=== PATIENT | female | born 1975 | race Caucasian/White ===

== ENCOUNTER 2016-04-08 10:52 | Emergency (ER) | payer OTHER ==
[2016-04-08 12:16] VITALS: BP 118/71
--- NOTE | 2016-04-08 12:50 | UC ---
Upper Extremity HPI - HPI Summary HPI Summary: fell off a stool yesterday and landed on left elbow - History of Current Complaint Chief Complaint: UCUpperExtremity Stated Complaint: ARM INJURY Time Seen by Provider: 04/08/16 12:14 Hx Obtained From: Patient Hx Last Menstrual Period: 03/26/16 ?: No Onset/Duration: Sudden Onset, Lasting Days - 1, Still Present Severity Initially: Mild Severity Currently: Mild Pain Intensity: 4 Pain Scale Used: 0-10 Numeric - 4 Location Of Pain: Is Discrete @ - left elbow Character: Aching Aggravating Factor(s): Movement - some movements Alleviating Factor(s): Nothing Associated Signs And Symptoms: Positive: Bruising Related History: Dominant Hand Right - Allergies/Home Medications Allergies/Adverse Reactions: Allergies Allergy/AdvReac Type Severity Reaction Status Date / Time Sulfamethoxazole Allergy Severe Nausea And Verified 04/08/16 12:16 w/Trimethoprim Vomiting [From Bactrim] PMH/Surg Hx/FS Hx/Imm Hx Previously Healthy: No Endocrine History Of: Reports: Thyroid Disease - Surgical History Surgical History: Yes Surgery Procedure, Year, and Place: appe; D & C 2001 - Family History Known Family History: Positive: Respiratory Disease, Other - hypothyrodism - Social History Occupation: Employed Full-time - day care provider Lives: With Family Alcohol Use: Rare Substance Use Type: None Smoking Status (MU): Never Smoked Tobacco Review of Systems Constitutional: Negative Skin: Bruising - left elbow Eyes: Negative ENT: Negative Respiratory: Negative Cardiovascular: Negative Gastrointestinal: Negative Genitourinary: Negative Motor: Negative Neurovascular: Negative Musculoskeletal: Arthralgia - left elbow Neurological: Negative Psychological: Negative All Other Systems Reviewed And Are Negative: Yes Physical Exam Triage Information Reviewed: Yes Appearance: Well-Appearing, Well-Nourished, Pain Distress - mild Vital Signs: Initial Vital Signs Temp 98.5 F 04/08/16 12:11 Pulse 69 04/08/16 12:11 Resp 12 04/08/16 12:11 BP 118/71 04/08/16 12:11 Vital Signs Reviewed: Yes Eye Exam: Normal Eyes: Positive: Conjunctiva Clear ENT Exam: Normal ENT: Positive: Normal ENT inspection, Hearing grossly normal, Pharynx normal, TMs normal. Negative: Nasal congestion, Nasal drainage, Tonsillar swelling, Tonsillar exudate, Trismus, Muffled/hoarse voice Dental Exam: Normal Neck exam: Normal Neck: Positive: Supple, Nontender, No Lymphadenopathy Respiratory Exam: Normal Respiratory: Positive: Chest non-tender, Lungs clear, Normal breath sounds, No respiratory distress, No accessory muscle use Cardiovascular Exam: Normal Cardiovascular: Positive: RRR, No Murmur, Pulses Normal, Brisk Capillary Refill Musculoskeletal Exam: Other Musculoskeletal: Positive: Strength Intact, ROM Intact, Edema @ - left elbow Neurological Exam: Normal Neurological: Positive: Alert, Muscle Tone Normal Psychological Exam: Normal Psychological: Positive: Normal Response To Family, Age Appropriate Behavior Skin Exam: Normal Diagnostics - Laboratory Diagnostic Studies Completed/Ordered: negative for fracture Upper Extremity Course/Dx - Course Course Of Treatment: rest, ice, compression, ibuprofen, re-check prn with ortho - Differential Dx/Diagnosis Differential Diagnosis/HQI/PQRI: Bursitis, Contusion, Fracture (Closed), Strain , Sprain Provider Diagnoses: contusion left elbow Discharge - Discharge Plan Condition: Stable Disposition: HOME Patient Education Materials: Ibuprofen (By mouth), Contusion in Adults (ED), RICE Therapy (ED) Referrals: Maru Stein MD [Medical Doctor] - If Needed Perfecto Patel MD [Primary Care Provider] -
--- NOTE | 2016-04-08 12:51 | RAD ---
HISTORY: Left elbow trauma, pain COMPARISONS: None VIEWS: 4, Frontal, lateral, and oblique views of the left elbow FINDINGS: BONE DENSITY: Normal. BONES: There is no displaced fracture. JOINTS: There is no arthropathy. There is no posterior supracondylar fat pad to suggest a joint effusion. ALIGNMENT: There is no dislocation. SOFT TISSUES: Unremarkable. OTHER FINDINGS: None. IMPRESSION: NO ACUTE OSSEOUS INJURY. IF SYMPTOMS PERSIST, RECOMMEND REPEAT IMAGING.
== END 2016-04-08 13:02 | disposition home or self-care (01) ==
LOC: UCEAST 10:52
DX: S50.02XA Contusion of left elbow, initial encounter (principal); W07.XXXA Fall from chair, initial encounter; Y93.9 Activity, unspecified; Y92.9 Unspecified place or not applicable; Y99.9 Unspecified external cause status
CPT/HCPCS: 99211; 99213; G0463

== ENCOUNTER 2016-05-31 16:48 | Emergency (ER) | payer OTHER ==
[2016-05-31 18:59] VITALS: BP 136/79
--- NOTE | 2016-05-31 19:07 | UC ---
Complaint Female HPI - HPI Summary HPI Summary: Dysuria, hematuria, frequency starting 2 days ago. Feels like UTIs she's had in the past. - History Of Current Complaint Chief Complaint: UCGU Stated Complaint: BURNING URINATION Time Seen by Provider: 05/31/16 18:57 Hx Last Menstrual Period: 05/13/16 ?: No Onset/Duration: Gradual Onset, Lasting Days Timing: Constant Severity Initially: Mild Severity Currently: Moderate Character: Burning Aggravating Factor(s): Urination - Allergies/Home Medications Allergies/Adverse Reactions: Allergies Allergy/AdvReac Type Severity Reaction Status Date / Time Sulfamethoxazole Allergy Severe Nausea And Verified 04/08/16 12:16 w/Trimethoprim Vomiting [From Bactrim] PMH/Surg Hx/FS Hx/Imm Hx Endocrine History Of: Reports: Thyroid Disease Denies: Diabetes Cardiovascular History Of: Denies: Cardiac Disorders, Hypertension Respiratory History Of: Denies: COPD, Asthma GI/ History Of: Denies: Ulcer - Surgical History Surgical History: Yes Surgery Procedure, Year, and Place: appe; D & C 2001 - Family History Known Family History: Positive: Respiratory Disease, Other - hypothyrodism - Social History Lives: With Family Alcohol Use: Occasionally Substance Use Type: None Smoking Status (MU): Never Smoked Tobacco Review of Systems Constitutional: Negative Skin: Negative Eyes: Negative ENT: Negative Respiratory: Negative Cardiovascular: Negative Gastrointestinal: Negative Genitourinary: Dysuria, Hematuria, Frequency, Urgency Motor: Negative Neurovascular: Negative Musculoskeletal: Negative Neurological: Negative Psychological: Negative All Other Systems Reviewed And Are Negative: Yes Physical Exam Triage Information Reviewed: Yes Appearance: Well-Appearing, No Pain Distress, Well-Nourished Vital Signs: Initial Vital Signs Temp 99.0 F 05/31/16 18:55 Pulse 67 05/31/16 18:55 Resp 18 05/31/16 18:55 BP 136/79 05/31/16 18:55 Pulse Ox 100 05/31/16 18:55 Vital Signs Reviewed: Yes Eye Exam: Normal Eyes: Positive: Conjunctiva Clear ENT Exam: Normal ENT: Positive: Normal ENT inspection, Hearing grossly normal, Pharynx normal, TMs normal Dental Exam: Normal Respiratory Exam: Normal Respiratory: Positive: Chest non-tender, Lungs clear, Normal breath sounds, No respiratory distress, No accessory muscle use Cardiovascular Exam: Normal Cardiovascular: Positive: RRR, No Murmur Abdomen Description: Positive: Soft. Negative: CVA Tenderness (R), CVA Tenderness (L) Musculoskeletal Exam: Normal Neurological Exam: Normal Psychological Exam: Normal Skin Exam: Normal Complaint Female Dx - Differential Dx/Diagnosis Provider Diagnoses: UTI Discharge - Discharge Plan Condition: Stable Disposition: HOME Prescriptions: Nitrofurantoin Monohyd Macro [Macrobid] 100 mg PO BID #10 cap Patient Education Materials: Urinary Tract Infection in Women (ED) Referrals: Perfecto Patel MD [Primary Care Provider] -
== END 2016-05-31 19:15 | disposition home or self-care (01) ==
LOC: UCEAST 16:48
DX: N39.0 Urinary tract infection, site not specified (principal); R31.9 Hematuria, unspecified; Z88.2 Allergy status to sulfonamides
CPT/HCPCS: 81002; 87086; 99212; G0463

== ENCOUNTER 2016-07-11 17:09 | Emergency (ER) | payer OTHER ==
[2016-07-11 19:24] VITALS: BP 137/99
--- NOTE | 2016-07-11 20:05 | UC ---
Throat Pain/Nasal Andrew HPI - HPI Summary HPI Summary: complaint of nasal congestion and cough that started 8-10 days ago sinus pressure has been increasing productive cough with yellow sputum denies sore throat and ear pain, muscle achiness, N/V/D intermittent headaches taking sudafed and ibuprofen with some relief - History of Current Complaint Chief Complaint: UCRespiratory Stated Complaint: SINUS/MINOR COUGH Time Seen by Provider: 07/11/16 19:58 Hx Obtained From: Patient Hx Last Menstrual Period: one week ago - Allergies/Home Medications Allergies/Adverse Reactions: Allergies Allergy/AdvReac Type Severity Reaction Status Date / Time Sulfamethoxazole Allergy Severe Nausea And Verified 07/11/16 19:25 w/Trimethoprim Vomiting [From Bactrim] Home Medications: Home Medications Lactobacillus [Probiotic] 07/11/16 [History Confirmed 07/11/16] PMH/Surg Hx/FS Hx/Imm Hx Previously Healthy: Yes Endocrine History Of: Reports: Thyroid Disease Denies: Diabetes Cardiovascular History Of: Denies: Cardiac Disorders, Hypertension Respiratory History Of: Denies: COPD, Asthma GI/ History Of: Denies: Ulcer - Surgical History Surgical History: Yes Surgery Procedure, Year, and Place: appe; D & C 2001 - Family History Known Family History: Positive: Respiratory Disease, Other - hypothyrodism Negative: Cardiac Disease, Hypertension - Social History Occupation: Employed Full-time Lives: With Family Alcohol Use: Occasionally Substance Use Type: None Smoking Status (MU): Never Smoked Tobacco Review of Systems Constitutional: Negative Skin: Negative Eyes: Negative ENT: Nasal Discharge Respiratory: Cough Cardiovascular: Negative Gastrointestinal: Negative Genitourinary: Negative Motor: Negative Neurovascular: Negative Musculoskeletal: Negative Neurological: Headache Psychological: Negative All Other Systems Reviewed And Are Negative: Yes Physical Exam Triage Information Reviewed: Yes Appearance: No Pain Distress, Well-Nourished Vital Signs: Initial Vital Signs Temp 98.9 F 07/11/16 19:21 Pulse 78 07/11/16 19:21 Resp 18 07/11/16 19:21 BP 137/99 07/11/16 19:21 Pulse Ox 100 07/11/16 19:21 Vital Signs Reviewed: Yes Eyes: Positive: Conjunctiva Clear ENT: Positive: Pharyngeal erythema, Nasal congestion, Nasal drainage, TM bulging , Other: - frontal and maxillary sinus tenderness Neck: Positive: No Lymphadenopathy Respiratory: Positive: Lungs clear, Normal breath sounds, No respiratory distress, No accessory muscle use Cardiovascular: Positive: RRR, No Murmur, Pulses Normal Abdomen Description: Positive: Nontender, Soft Bowel Sounds: Positive: Present Musculoskeletal: Positive: No Edema Neurological: Positive: Alert Psychological Exam: Normal Skin Exam: Normal Throat Pain/Nasal Course/Dx - Differential Dx/Diagnosis Differential Diagnosis/HQI/PQRI: Sinusitis, URI Provider Diagnoses: sinusitis Discharge - Discharge Plan Condition: Stable Disposition: HOME Prescriptions: Amoxicillin/Clavulanate TAB* [Augmentin TAB 875*] 875 mg PO BID #20 tab Patient Education Materials: Sinusitis (ED) Referrals: Perfecto Patel MD [Primary Care Provider] - Additional Instructions: SINUSITIS What is Sinusitis? Sinusitis is inflammation or infection of the lining of the sinuses behind the bones in your cheeks or forehead. Sinusitis may occur following a common cold, flu, or other infection; allergies; a tooth infection that spreads to the sinuses; swimming in contaminated water; pressure changes in airplanes at high altitudes; violent sneezing or nose blowing or smoking or breathing other peoples smoke. Symptoms Might Include: Nasal Congestion Sneezing Watery eyes, eye irritation, or eye itching Headaches Pressure in the cheeks Wheezing Trouble smelling Sore throat and coughing may occur Treatment Recommendations: Take medicines as prescribed until completely gone. Drink plenty of fluids. Use saline nose spray to thin the mucous and help the sinuses drain. Use a vaporizer or humidifier. Apply warm compresses to the face or forehead several times a day for 10 to 20 minutes. Call Your Doctor or Return Here IF: Your pain increases during treatment. You develop a high temperature. You develop unusual swelling around the eyes. You have difficulty with your vision. You develop a severe headache, earache, or toothache. You develop increased fever or fever that does not respond to medication such as Tylenol?. You have difficulty breathing or catching your breath. You begin to have any other new symptoms that worry you.
== END 2016-07-11 20:15 | disposition home or self-care (01) ==
LOC: UCEAST 17:09
DX: J32.9 Chronic sinusitis, unspecified (principal); Z88.2 Allergy status to sulfonamides; E07.9 Disorder of thyroid, unspecified
CPT/HCPCS: 99212; G0463

== ENCOUNTER 2016-07-24 17:58 | Emergency (ER) | payer OTHER ==
[2016-07-24 19:28] VITALS: BP 132/96
--- NOTE | 2016-07-24 20:18 | UC ---
Complaint Female HPI - HPI Summary HPI Summary: TOOK AUGMENTIN FOR SINUSITIS ABOUT 2 WEEKS AGO. NOW HAS HAD VAGINAL IRRITATION AND ITCHING FOR ABOUT A WEEK. NO DISCHARGE. DENIES URINARY SX. NO FEVER, NAUSEA OR BACK PAIN. HAS H/O GETTING YEAST INFECTIONS AFTER ABX. USED OTC YEAST INFECTION CREAMS WITH SLIGHT ALLEVIATION OF SYMPTOMS BUT NOT COMPLETE RESOLUTION. HAS HAD UNPROTECTED SEX WITH HER MALE PARTNER OVER THE PAST 2 WEEKS. STD TESTING 1 MONTH AGO NEGATIVE. LMP 07/05/16. - History Of Current Complaint Chief Complaint: UCGU Stated Complaint: POSS YEAST INFECTION Time Seen by Provider: 07/24/16 20:06 Hx Obtained From: Patient Hx Last Menstrual Period: 07/05/16 Onset/Duration: Gradual Onset, Lasting Days, Still Present Timing: Constant Severity Initially: Moderate Severity Currently: Moderate Pain Intensity: 4 Pain Scale Used: 0-10 Numeric Character: Burning Aggravating Factor(s): Nothing Alleviating Factor(s): Meds - OTC YEAST INFECTION MEDS SLIGHTLY HELPFUL Associated Signs And Symptoms: Negative: Fever, Back Pain, Vaginal Bleeding/ Discharge, Vaginal Discharge, Nausea, Vomiting(# Of Episodes =), Genital Swelling, Genital Blisters - Allergies/Home Medications Allergies/Adverse Reactions: Allergies Allergy/AdvReac Type Severity Reaction Status Date / Time Sulfamethoxazole Allergy Severe Nausea And Verified 07/24/16 19:28 w/Trimethoprim Vomiting [From Bactrim] PMH/Surg Hx/FS Hx/Imm Hx Endocrine History Of: Reports: Thyroid Disease, Hypothyroidism Denies: Diabetes Cardiovascular History Of: Denies: Cardiac Disorders, Hypertension Respiratory History Of: Denies: COPD, Asthma GI/ History Of: Denies: Ulcer - Surgical History Surgical History: Yes Surgery Procedure, Year, and Place: appendix; D & C 2001 - Family History Known Family History: Positive: Respiratory Disease, Other - hypothyrodism Negative: Cardiac Disease, Hypertension - Social History Alcohol Use: Occasionally Substance Use Type: None Smoking Status (MU): Never Smoked Tobacco Review of Systems Constitutional: Negative Skin: Negative Respiratory: Negative Cardiovascular: Negative Gastrointestinal: Negative Genitourinary: Other - VAGINAL IRRITATION/ITCH All Other Systems Reviewed And Are Negative: Yes Physical Exam Triage Information Reviewed: Yes Appearance: Well-Appearing, No Pain Distress, Well-Nourished Vital Signs: Initial Vital Signs Temp 98.2 F 07/24/16 19:22 Pulse 63 07/24/16 19:22 Resp 16 07/24/16 19:22 BP 132/96 07/24/16 19:22 Pulse Ox 100 07/24/16 19:22 Vital Signs Reviewed: Yes Eyes: Positive: Conjunctiva Clear ENT: Positive: Hearing grossly normal Neck: Positive: Supple Respiratory: Positive: No respiratory distress, No accessory muscle use Cardiovascular: Positive: Pulses Normal Abdomen Description: Positive: Nontender, Soft. Negative: CVA Tenderness (R), CVA Tenderness (L), Distended, Guarding Bowel Sounds: Positive: Present Musculoskeletal: Positive: No Edema Neurological: Positive: Alert Psychological: Positive: Age Appropriate Behavior Skin: Negative: rashes Diagnostics - Laboratory Diagnostic Studies Completed/Ordered: URINE DIP UNREMARKABLE Complaint Female Dx - Differential Dx/Diagnosis Provider Diagnoses: VAGINITIS, LIKELY YEAST Discharge - Discharge Plan Condition: Stable Disposition: HOME Prescriptions: Fluconazole [Diflucan] 1 tab PO ONCE #2 tab Patient Education Materials: Vulvovaginal Candidiasis (ED) Referrals: Perfecto Patel MD [Primary Care Provider] - If Needed Additional Instructions: URINE TEST NEGATIVE FOR URINARY TRACT INFECTION. SPECIMEN SENT TO TEST FOR GONORRHEA AND CHLAMYDIA. WE WILL CALL YOU IF POSITIVE. TAKE DIFLUCAN FOR PRESUMPTIVE YEAST INFECTION. IF SYMPTOMS DO NOT RESOLVE FOLLOW -UP HERE OR WITH PCP FOR FURTHER EVALUATION.
== END 2016-07-24 20:34 | disposition home or self-care (01) ==
LOC: UCEAST 17:58
DX: N76.0 Acute vaginitis (principal); Z88.3 Allergy status to other anti-infective agents; E03.9 Hypothyroidism, unspecified
CPT/HCPCS: 81003; 87491; 87591; 99212; G0463

== ENCOUNTER 2016-09-13 17:05 | Emergency (ER) | payer OTHER ==
[2016-09-13 17:36] VITALS: BP 109/78
--- NOTE | 2016-09-13 18:02 | UC ---
Complaint Female HPI - HPI Summary HPI Summary: Dysuria, bladder pressure, frequency starting 4 days ago. Tried drinking water and taking cranberry pills. Hx of frequent UTIs that have been worse lately, coincided with recent sexual relationship. - History Of Current Complaint Chief Complaint: UCGU Stated Complaint: UTI TYPE SYMPTOMS Time Seen by Provider: 09/13/16 17:40 Hx Obtained From: Patient Hx Last Menstrual Period: 08/26/16 ?: No Onset/Duration: Gradual Onset, Lasting Days Timing: Constant Severity Initially: Mild Severity Currently: Moderate Character: Burning Aggravating Factor(s): Urination Associated Signs And Symptoms: Negative: Vaginal Bleeding/Discharge, Vaginal Discharge, Nausea - Allergies/Home Medications Allergies/Adverse Reactions: Allergies Allergy/AdvReac Type Severity Reaction Status Date / Time Sulfamethoxazole Allergy Severe Nausea And Verified 09/13/16 17:36 w/Trimethoprim Vomiting [From Bactrim] Home Medications: Home Medications Cranberry (Vaccinium Macrocarp [Cranberry] 300 mg PO PRN 09/13/16 [History] Omeprazole CAP* [Prilosec CAP* 20 MG] 20 mg PO DAILY 09/13/16 [History Confirmed 09/13/16] PMH/Surg Hx/FS Hx/Imm Hx Previously Healthy: Yes - Surgical History Surgical History: Yes Surgery Procedure, Year, and Place: appendix; D & C 2001 - Family History Known Family History: Positive: Respiratory Disease, Other - hypothyrodism Negative: Cardiac Disease, Hypertension - Social History Occupation: Employed Full-time Alcohol Use: Occasionally Substance Use Type: None Smoking Status (MU): Never Smoked Tobacco Review of Systems Constitutional: Negative Skin: Negative Eyes: Negative ENT: Negative Respiratory: Negative Cardiovascular: Negative Gastrointestinal: Negative Genitourinary: Dysuria Motor: Negative Neurovascular: Negative Musculoskeletal: Negative Neurological: Negative Psychological: Negative All Other Systems Reviewed And Are Negative: Yes Physical Exam Triage Information Reviewed: Yes Appearance: Well-Appearing, No Pain Distress, Well-Nourished Vital Signs: Initial Vital Signs Temp 100.2 F 09/13/16 17:32 Pulse 76 09/13/16 17:32 Resp 16 09/13/16 17:32 BP 109/78 09/13/16 17:32 Pulse Ox 100 09/13/16 17:32 Vital Signs Reviewed: Yes Eye Exam: Normal Eyes: Positive: Conjunctiva Clear ENT Exam: Normal ENT: Positive: Normal ENT inspection, Hearing grossly normal, Pharynx normal, TMs normal Dental Exam: Normal Neck exam: Normal Neck: Positive: Supple, Nontender, No Lymphadenopathy Respiratory Exam: Normal Respiratory: Positive: Chest non-tender, Lungs clear, Normal breath sounds, No respiratory distress, No accessory muscle use Cardiovascular Exam: Normal Cardiovascular: Positive: RRR, No Murmur Abdomen Description: Positive: Nontender. Negative: CVA Tenderness (R), CVA Tenderness (L) Musculoskeletal Exam: Normal Neurological Exam: Normal Neurological: Positive: Alert Psychological Exam: Normal Skin Exam: Normal Complaint Female Dx - Differential Dx/Diagnosis Provider Diagnoses: UTI Discharge - Discharge Plan Condition: Stable Disposition: HOME Prescriptions: Nitrofurantoin Monohyd Macro [Macrobid] 100 mg PO BID #10 cap Phenazopyridine 200 mg (NF) [Pyridium 200 MG tab] 200 mg PO TID PRN #3 tab PRN Reason: Pain Patient Education Materials: Urinary Tract Infection in Women (ED) Referrals: Perfecto Patel MD [Primary Care Provider] - Additional Instructions: Call or return if you have prolonged or worsening symptoms.
== END 2016-09-13 18:21 | disposition home or self-care (01) ==
LOC: UCEAST 17:05
DX: N39.0 Urinary tract infection, site not specified (principal); Z87.440 Personal history of urinary (tract) infections; Z88.2 Allergy status to sulfonamides
CPT/HCPCS: 81003; 87086; 99212; G0463

== ENCOUNTER 2016-09-18 17:19 | Emergency (ER) | payer OTHER ==
[2016-09-18 19:56] VITALS: BP 124/90
--- NOTE | 2016-09-18 20:07 | UC ---
Complaint Female HPI - HPI Summary HPI Summary: FIVE DAYS OF INCREASING URINARY DISCOMFORT AND FREQUENCY. HAS BEEN ON NITROFURANTION. - History Of Current Complaint Stated Complaint: UTI COMPLAINT Time Seen by Provider: 09/18/16 19:22 Hx Obtained From: Patient Hx Last Menstrual Period: 09/23/16 Onset/Duration: Gradual Onset, Lasting Days, Worse Since - DAILY Timing: Lasting Days Severity Initially: Mild Severity Currently: Moderate Character: Dull, Burning, Cramping Aggravating Factor(s): Urination Alleviating Factor(s): Nothing Associated Signs And Symptoms: Negative: Fever, Back Pain, Nausea, Vomiting(# Of Episodes =) - Risk Factors Ectopic Risk Factor: Negative - Allergies/Home Medications Allergies/Adverse Reactions: Allergies Allergy/AdvReac Type Severity Reaction Status Date / Time Sulfamethoxazole Allergy Severe Nausea And Verified 09/13/16 17:36 w/Trimethoprim Vomiting [From Bactrim] PMH/Surg Hx/FS Hx/Imm Hx Previously Healthy: Yes - Surgical History Surgical History: Yes Surgery Procedure, Year, and Place: appendix; D & C 2001 - Family History Known Family History: Positive: Respiratory Disease, Other - hypothyrodism Negative: Cardiac Disease, Hypertension - Social History Occupation: Employed Full-time Lives: With Family Alcohol Use: Occasionally Substance Use Type: None Smoking Status (MU): Never Smoked Tobacco Review of Systems Constitutional: Negative Skin: Negative Eyes: Negative ENT: Negative Respiratory: Negative Cardiovascular: Negative Gastrointestinal: Negative Genitourinary: Dysuria, Frequency, Urgency Motor: Negative Neurovascular: Negative Musculoskeletal: Negative Neurological: Negative Psychological: Negative All Other Systems Reviewed And Are Negative: Yes Physical Exam Triage Information Reviewed: Yes Appearance: Well-Appearing, No Pain Distress, Well-Nourished Vital Signs: Initial Vital Signs Temp 98.6 F 09/18/16 19:51 Pulse 66 09/18/16 19:51 Resp 16 09/18/16 19:51 BP 124/90 09/18/16 19:51 Pulse Ox 100 09/18/16 19:51 Vital Signs Reviewed: Yes Eye Exam: Normal ENT Exam: Normal ENT: Positive: Normal ENT inspection, Hearing grossly normal, Pharynx normal, TMs normal Dental Exam: Normal Neck exam: Normal Neck: Positive: Supple, Nontender, No Lymphadenopathy Respiratory Exam: Normal Respiratory: Positive: Chest non-tender, Lungs clear, Normal breath sounds, No respiratory distress, No accessory muscle use Cardiovascular Exam: Normal Cardiovascular: Positive: RRR, No Murmur, Pulses Normal Abdominal Exam: Normal Abdomen Description: Positive: Nontender, No Organomegaly, Soft. Negative: CVA Tenderness (R), CVA Tenderness (L) Musculoskeletal Exam: Normal Neurological Exam: Normal Psychological Exam: Normal Skin Exam: Normal Complaint Female Dx - Differential Dx/Diagnosis Differential Diagnosis/HQI/PQRI: Urinary Tract Infection Provider Diagnoses: URINARY TRACT INFECTION Discharge - Discharge Plan Condition: Stable Disposition: HOME Prescriptions: Cephalexin CAP* [Keflex CAP*] 500 mg PO QID #20 cap Fluconazole [Diflucan 150 MG (NF)] 150 mg PO ONCE #1 tab Phenazopyridine TAB* [Pyridium 100 mg TAB*] 100 mg PO TID PRN #15 tab PRN Reason: Pain - Mild To Moderate Patient Education Materials: Urinary Tract Infection in Women (ED) Referrals: Perfecto Patel MD [Primary Care Provider] -
== END 2016-09-18 19:58 | disposition home or self-care (01) ==
LOC: UCEAST 17:19
DX: N39.0 Urinary tract infection, site not specified (principal)
CPT/HCPCS: 81003; 87086; 99212; G0463

== ENCOUNTER 2016-10-24 18:58 | Emergency (ER) | payer OTHER ==
--- NOTE | 2016-10-24 20:27 | UC ---
Minor Trauma HPI - HPI Summary HPI Summary: 4 DAYS AGO WAS ROUGH HOUSING WITH A FRIEND WHEN HE CAME DOWN ON HER AND SHE HAD SUDDEN PAIN IN LEFT ANTERIOR RIB CAGE. NO BRUISING OR SWELLING BUT HAS PAIN WITH MVMT, DEEP BREATHS AND COUGHING. NO SOB. NO FEVER. - History of Current Complaint Chief Complaint: UCGeneralIllness Stated Complaint: LT SIDE PAIN (RIBS) Time Seen by Provider: 10/24/16 20:15 Hx Obtained From: Patient Hx Last Menstrual Period: 10/20/16 Onset/Duration: Sudden Onset, Lasting Days, Still Present Onset Of Pain: Immediate Severity Initially: Moderate Severity Currently: Moderate Pain Intensity: 7 Pain Scale Used: 0-10 Numeric Mechanism Of Injury: Blunt Trauma Aggravating Factor(s): Coughing, Deep Breaths, Movement Alleviating Factor(s): Rest Associated Signs And Symptoms: Negative: Loss Of Consciousness, Ecchymosis, Swelling - Allergies/Home Medications Allergies/Adverse Reactions: Allergies Allergy/AdvReac Type Severity Reaction Status Date / Time Sulfamethoxazole Allergy Severe Nausea And Verified 10/24/16 19:05 w/Trimethoprim Vomiting [From Bactrim] PMH/Surg Hx/FS Hx/Imm Hx Endocrine History: Hypothyroidism - Surgical History Surgical History: Yes Surgery Procedure, Year, and Place: appendix; D & C 2001 - Family History Known Family History: Positive: Respiratory Disease, Other - hypothyrodism Negative: Cardiac Disease, Hypertension - Social History Alcohol Use: Occasionally Substance Use Type: None Smoking Status (MU): Never Smoked Tobacco Review of Systems Constitutional: Negative Skin: Negative Respiratory: Negative Cardiovascular: Negative Gastrointestinal: Negative Musculoskeletal: Other: - left rib cage pain All Other Systems Reviewed And Are Negative: Yes Physical Exam Triage Information Reviewed: Yes Appearance: Well-Appearing, No Pain Distress, Well-Nourished Vital Signs: Initial Vital Signs Temp 98.6 F 10/24/16 19:00 Pulse 62 10/24/16 19:00 Resp 18 10/24/16 19:00 BP 125/68 10/24/16 19:00 Pulse Ox 100 10/24/16 19:00 Vital Signs Reviewed: Yes Eyes: Positive: Conjunctiva Clear ENT: Positive: Hearing grossly normal Neck: Positive: Supple Respiratory: Positive: No respiratory distress, No accessory muscle use Cardiovascular: Positive: Pulses Normal Abdomen Description: Positive: Nontender, Soft Musculoskeletal: Positive: No Edema, Other: - TTP LEFT ANTERIOR RIB CAGE. NO BRUISING Neurological: Positive: Alert Psychological: Positive: Age Appropriate Behavior Skin: Negative: rashes Diagnostics - Radiology LEFT RIB XRAYS Xray Interpretation: No Acute Changes - 1. No evidence for acute intrathoracic disease. 2. No evidence for acute LEFT rib fracture. Radiology Interpretation Completed By: Radiologist Minor Trauma Course/Dx - Differential Dx/Diagnosis Provider Diagnoses: LEFT RIB CONTUSION/INTERCOSTAL MUSCLE STRAIN Discharge - Discharge Plan Condition: Stable Disposition: HOME Patient Education Materials: Rib Contusion (ED) Referrals: Perfecto Patel MD [Primary Care Provider] - If Needed Additional Instructions: RIB XRAYS DO NOT SHOW ANYTHING ACUTE TODAY. BE SURE TO TAKE DEEP BREATHS TO KEEP YOUR LUNGS EXPANDED. OTC MEDS FOR DISCOMFORT. FOLLOW-UP WITH YOUR PCP IF YOU ARE NOT IMPROVING EXPECTED OVER THE NEXT WEEK.
--- NOTE | 2016-10-24 20:56 | RAD ---
Indication: LEFT lower rib pain following injury 4 days ago. Comparison: No relevant prior exams available on the [facility] PACS for comparison. Technique: PA chest and 3 view LEFT unilateral rib series. Report: Clear lungs and pleural spaces. Negative for pneumothorax. The heart, pulmonary vasculature, and mediastinal contours are unremarkable. Suggestion of a healed fracture at the LEFT 10th rib laterally. No acute LEFT rib fracture evident. IMPRESSION: 1. No evidence for acute intrathoracic disease. 2. No evidence for acute LEFT rib fracture.
[2016-10-24 21:00] VITALS: BP 126/88
== END 2016-10-24 21:21 | disposition home or self-care (01) ==
LOC: UCEAST 18:58
DX: S20.212A Contusion of left front wall of thorax, initial encounter (principal); S29.011A Strain of muscle and tendon of front wall of thorax, initial encounter; W03.XXXA Other fall on same level due to collision with another person, initial encounter; Y93.83 Activity, rough housing and horseplay; Y92.9 Unspecified place or not applicable; E03.9 Hypothyroidism, unspecified; Z88.2 Allergy status to sulfonamides
CPT/HCPCS: 99211; G0463

== ENCOUNTER 2017-06-03 17:20 | Emergency (ER) | payer OTHER ==
[2017-06-03 18:04] VITALS: BP 131/78
--- NOTE | 2017-06-03 19:02 | UC ---
Crow Espinoza Nilda, scribed for Bennie Morales MD on 06/03/17 at 1816 . Complaint Female HPI - HPI Summary HPI Summary: This patient is a 42 year old F [place] [facility] a chief complaint of constant UTI symptoms since yesterday that have worsened today. The patient rates the pain 3/10 in severity. Symptoms aggravated by urination and alleviated by nothing. Patient reports burning with urination, urinary frequency , urinary retention, and right ear pain (likely secondary to jaw clenching from anxiety per pt), but denies fever and chills. PMHx includes frequent UTIs since in teens (3-4 per year). Pt states shes been in monogamous relationship with same partner for 2 years and is not concerned about STIs. She notes shes had a recent sinus infection. Adverse reactions to Bactrim (vomiting). No PSHx. Medications include BCPs and cranberry pills for frequent UTIs. - History Of Current Complaint Stated Complaint: UTI Time Seen by Provider: 06/03/17 18:00 Hx Obtained From: Patient Hx Last Menstrual Period: 05/16/2016 Onset/Duration: Sudden Onset, Lasting Days, Still Present Timing: Constant Severity Currently: Mild Pain Intensity: 3 Pain Scale Used: 0-10 Numeric Character: Burning Aggravating Factor(s): Urination Alleviating Factor(s): Nothing Associated Signs And Symptoms: Negative: Fever, Vaginal Bleeding/Discharge, Vaginal Discharge, Genital Swelling, Genital Blisters - Allergies/Home Medications Allergies/Adverse Reactions: Allergies Allergy/AdvReac Type Severity Reaction Status Date / Time sulfamethoxazole Allergy Hives/Diff. Verified 06/03/17 18:06 [From Bactrim] Breathing/I tching trimethoprim [From Bactrim] Allergy Hives/Diff. Verified 06/03/17 18:06 Breathing/I tching Home Medications: Home Medications Ibuprofen [Advil] 200 mg PO 06/03/17 [History] PMH/Surg Hx/FS Hx/Imm Hx Endocrine History: Thyroid Disease - r Psychological History: Anxiety - Surgical History Surgical History: Yes Surgery Procedure, Year, and Place: appendix; D & C 2001 - Family History Known Family History: Positive: Respiratory Disease, Other - hypothyrodism Negative: Cardiac Disease, Hypertension - Social History Alcohol Use: Occasionally Substance Use Type: None Smoking Status (MU): Never Smoked Tobacco Review of Systems Constitutional: Other - negative fever, chills ENT: Ear Ache - right ear pain Genitourinary: Other - burning with urination, frequency, urinary retention All Other Systems Reviewed And Are Negative: Yes Physical Exam - Summary Physical Exam Summary: General: well-appearing, no pain distress Skin: warm, color reflects adequate perfusion, dry Head: normal Eyes: EOMI, BILL ENT: normal except for Right TM that is mildly bulging with clear fluid behind it. Neck: supple, nontender Respiratory: CTA, breath sounds present Cardiovascular: RRR Abdomen: soft, Mild suprapubic tenderness Bowel: present Musculoskeletal: normal, strength/ROM intact Neurological: normal, sensory/motor intact, A&O x3 Psychological: affect/mood appropriate Triage Information Reviewed: Yes Vital Signs: Initial Vital Signs Temp 98.1 F 06/03/17 17:54 Pulse 64 06/03/17 17:54 Resp 16 06/03/17 17:54 BP 131/78 06/03/17 17:54 Pulse Ox 98 06/03/17 17:54 Vital Signs Reviewed: Yes Complaint Female Dx - Course Course Of Treatment: BP noted and advised to follow up with PCP. Allergies noted. Medications reviewed. - Differential Dx/Diagnosis Provider Diagnoses: UTI. Elevated BP w/o Dx of HTN Discharge - Discharge Plan Condition: Stable Disposition: HOME Prescriptions: Nitrofurantoin Macrocrystals* [Macrodantin*] 100 mg PO BID #20 cap Patient Education Materials: Urinary Tract Infection in Women (ED) Referrals: Perfecto Patel MD [Primary Care Provider] - Additional Instructions: FOLLOW UP WITH YOUR DOCTOR. RETURN TO THE EMERGENCY DEPARTMENT FOR ANY WORSENING OF YOUR CONDITION OR QUESTIONS OR CONCERNS. YOUR BLOOD PRESSURE WAS ELEVATED TODAY; FOLLOW UP WITH YOUR PRIMARY CARE DOCTOR WITHIN ONE WEEK. The documentation as recorded by the Crow parr Nilda accurately reflects the service I personally performed and the decisions made by me, Bennie Morales MD.
== END 2017-06-03 18:20 | disposition home or self-care (01) ==
LOC: UCEAST 17:20
DX: N39.0 Urinary tract infection, site not specified (principal); R03.0 Elevated blood-pressure reading, without diagnosis of hypertension; H92.01 Otalgia, right ear; Z87.440 Personal history of urinary (tract) infections; E07.9 Disorder of thyroid, unspecified; F41.9 Anxiety disorder, unspecified; Z88.2 Allergy status to sulfonamides
CPT/HCPCS: 81003; 87077; 87086; 87186; 99212; G0463

== ENCOUNTER 2018-01-19 09:31 | Emergency (ER) | payer OTHER ==
[2018-01-19 09:56] VITALS: BP 115/77
--- NOTE | 2018-01-19 10:11 | UC ---
Complaint Female HPI - HPI Summary HPI Summary: Patient is 42 year old female , who present today with urinary symptoms since yesterday. He reports having urgency,frequency, dysuria and burning sensation. Denies much pain or any hematuria. Denies any abdominal pain. Denies any fever, chills, cough chest pain or shortness of breath . No diaphoresis. Denies any abdominal pain , nausea or vomiting , diarrhea or constipation. She does report that having UTI 4-5 times a year and sometimes the usual course of 5 days with Macrobid does not help her. She developed allergy to Bactrim once and does not take it anymore. She has not had any treatment so far. She also reported that she had some spotting for which she was seen by her primary care doctor and started on oral contraceptive pills. - History Of Current Complaint Chief Complaint: UCGU Stated Complaint: URINARY COMPLAINT Time Seen by Provider: 01/19/18 10:09 Hx Obtained From: Patient Hx Last Menstrual Period: 05/16/2016 Pain Intensity: 3 - Allergies/Home Medications Allergies/Adverse Reactions: Allergies Allergy/AdvReac Type Severity Reaction Status Date / Time sulfamethoxazole Allergy Hives/Diff. Verified 01/19/18 09:56 [From Bactrim] Breathing/I tching trimethoprim [From Bactrim] Allergy Hives/Diff. Verified 01/19/18 09:56 Breathing/I tching PMH/Surg Hx/FS Hx/Imm Hx Previously Healthy: Yes Endocrine History: Thyroid Disease, Hypothyroidism Other Endocrine History: negative Other Cardiovascular History: negative Other Respiratory History: negative Other GI/ History: negative Other Neurological History: negative Other Psychological History: negative Other Cancer History: negative - Surgical History Surgical History: Yes Surgery Procedure, Year, and Place: appendix; D & C 2001 - Family History Known Family History: Positive: Respiratory Disease, Other - hypothyrodism Negative: Cardiac Disease, Hypertension - Social History Alcohol Use: Occasionally Substance Use Type: None Smoking Status (MU): Never Smoked Tobacco Review of Systems Constitutional: Negative Skin: Negative Eyes: Negative ENT: Negative Respiratory: Negative Cardiovascular: Negative Gastrointestinal: Negative Genitourinary: Dysuria, Frequency, Urgency Motor: Negative Neurovascular: Negative Musculoskeletal: Negative Neurological: Negative Psychological: Negative Is Patient Immunocompromised?: No All Other Systems Reviewed And Are Negative: Yes Physical Exam - Summary Physical Exam Summary: Physical Exam: Const: Appears well. No signs of apparent distress present. Alert and oriented x 3. Musculo: Walks with a normal gait. Head/Face: Atraumatic, normocephalic on inspection. Eyes: EOMI and PERRLA in both eyes. Conjunctivae clear. No discharge noted ENT: Hearing normal, TM normal appearing bilaterally . Respiratory: Respirations are unlabored. Lungs clear to auscultation bilaterally, no wheezing , rhonchi or rales noted . CVS: Regular rate and Rhythm, S1S2 normal , no murmurs identified. Extremities: Peripheral circulation is grossly normal. Pulses 2+ Abdomen : Soft, there is no abdominal tenderness but minimal suprapubic tenderness noted , nondistended , Bowel sounds present . No guarding , rebound tenderness or rigidity noted. Skin: No lesions or rash located on the upper extremities or on the lower extremities. Neuro: Cranial nerves II to XII intact, motor and sensory intact. DTR Intact bilaterally. Mood is normal. Affect is normal. Triage Information Reviewed: Yes Vital Signs: Initial Vital Signs Temp 98.1 F 01/19/18 09:52 Pulse 65 01/19/18 09:52 Resp 18 01/19/18 09:52 BP 115/77 01/19/18 09:52 Pulse Ox 100 01/19/18 09:52 Vital Signs Reviewed: Yes Complaint Female Dx - Course Course Of Treatment: During the visit today, we obtained urinalysis which demonstrative 1+ leukoesterase and trace blood . Nitrite was negative. Urine culture will be obtained. We discussed the findings and further plan. I will prescribe the medication to the pharmacy . Patient expressed understanding . - Differential Dx/Diagnosis Provider Diagnoses: Urinary tract infection Discharge - Sign-Out/Discharge Documenting (check all that apply): Patient Departure All imaging exams completed and their final reports reviewed: No Studies - Discharge Plan Condition: Stable Disposition: HOME Prescriptions: Ciprofloxacin TAB* [Cipro 500 MG TAB*] 500 mg PO BID 5 Days #10 tab Patient Education Materials: Urinary Tract Infection in Women (ED) Referrals: Perfecto Patel MD [Primary Care Provider] - 3 Days Additional Instructions: Please start taking the medication as prescribed to the pharmacy . Maintain adequate hydration. Follow up with your primary care doctor in 3days. Return to Urgent care / ER if symptoms get worse. - Billing Disposition and Condition Condition: STABLE Disposition: Home
== END 2018-01-19 10:53 | disposition home or self-care (01) ==
LOC: UCEAST 09:31
DX: N39.0 Urinary tract infection, site not specified (principal); Z88.2 Allergy status to sulfonamides
CPT/HCPCS: 81003; 87077; 87086; 87186; 99212; G0463

== ENCOUNTER 2018-03-14 14:13 | Emergency (ER) | payer OTHER ==
--- OUTSIDE RECORDS SUMMARY | 2018-03-14 15:02 | XMS REPORT | Continuity of Care Document ---
:1975 External Reference #:[id number] Author Name Allyn Jacobo O.D. Address [address] [place] [address] Care Team Providers Name Role Phone Perfecto Patel M.D. Primary Care Physician Unavailable Payers Type Date Identification Numbers Payment Provider Subscriber Policy Number: [id number] [employer] Krissy Serrano PayID: [id number] [place] [address] Advance Directives Description No Information Available Problems Date Description Provider Status Onset: Anxiety Active Onset: Hypothyroidism Active Onset: 06/09/2015 Regular astigmatism Allyn Jacobo O.D. Active Onset: 06/09/2015 Myopia Allyn Jacobo O.D. 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 ETOH Use Rarely consumes alcohol Tobacco Use Start: Unknown Patient has never smoked Recreational Drug Use Denies Drug Use Smoking Status Reviewed: 03/12/18 Patient has never smoked Allergies, Adverse Reactions, Alerts Date Description Reaction Status Severity Comments 06/02/2015 Bactrim Active Medications Medication Date Status Form Strength Qnty SIG Indications Ordering Provider Levothyroxine Active Tablets 75mcg [place], Sodium 0 Perfecto Lala Multi Vitamin Active Tablets Unknown Daily 0 Immunizations Description No Information Available Vital Signs Description No Information Available Results Description No Information Available Procedures Date Code Description Status 06/09/2015 41501 Est Patient Comprehensive Exam Completed 05/19/2013 82906 Determination Of Refractive State Completed 05/19/2013 84062 Est Patient Comprehensive Exam Completed 05/14/2011 49537 Determination Of Refractive State Completed 05/14/2011 38378 New Patient Comprehensive Exam Completed Encounters Description No Information Available Plan of Treatment 03/12/2018 - Allyn Jacboo O.D.H52.13 Myopia, bilateralComments:Smoking can increase the risk of developing or worsening any eye related disease, as well as affect your overall health. If you are a smoker, we strongly recommend that you quit.If you are not a smoker, we strongly recommend that you do not start. You have Myopia, or near sightedness. I have given you a prescription for glasses.Follow up:2 YEARS You can expect to have your eyes dilated at your next visit. If Dr. Jacobo orders any additional testing, it may require extra time. We recommend that you bring sunglasses, as dilation drops often make you light sensitive until they wear off. We always recommend you bring someone to drive [employer] if you are uncomfortable driving with your eyes dilated. If you have any questions before your next visit, feel free to call our office at [phone].H52.223 Regular astigmatism, bilateralComments:Astigmatism is a common vision condition that happens when a person's cornea is not symmetrical. Dr. Jacobo has given you a prescription to correct for this.
[2018-03-14 15:05] VITALS: BP 119/80
--- NOTE | 2018-03-14 15:51 | UC ---
Ear Complaint HPI - HPI Summary HPI Summary: 43 y/o female presents to the urgent care c/o left ear pain and decrease hearing w/ pressure since 03/11/2018. She feels like she is in a fog. Pt reports Pain is 5/10. She had mild sinus pain and sinus congestion about 1 week ago and seh saw her PCP about 3 days ago and Dx w/ viral sinusitis w/ advises symptomatic treatment. Pt denies fever, URI symptoms, ALXE, dizziness , tinnitus, SOB, chest pain, abdominal pain, N/v/D. ear discharge. - History of Current Complaint Chief Complaint: UCEar Stated Complaint: EAR PAIN Time Seen by Provider: 03/14/18 15:27 Hx Obtained From: Patient Hx Last Menstrual Period: 02/17/18 ?: No Onset/Duration: Gradual Onset, Lasting Days - 3 days, Still Present, Worse Since - today Severity Initially: Mild Severity Currently: Mild Pain Intensity: 5 Pain Scale Used: 0-10 Numeric Aggravating Factors: Other - touch left ear Associated Signs/Symptoms: Positive: Hearing Loss - Allergies/Home Medications Allergies/Adverse Reactions: Allergies Allergy/AdvReac Type Severity Reaction Status Date / Time sulfamethoxazole Allergy Vomiting Verified 03/14/18 15:05 [From Bactrim] trimethoprim [From Bactrim] Allergy Vomiting Verified 03/14/18 15:05 PMH/Surg Hx/FS Hx/Imm Hx Previously Healthy: Yes Endocrine History: Hypothyroidism GI/ History: Gastroesophageal Reflux Psychological History: Anxiety, Depression - Surgical History Surgical History: Yes Surgery Procedure, Year, and Place: appendix; D & C 2001 - Family History Known Family History: Positive: Respiratory Disease, Other - hypothyrodism Negative: Cardiac Disease, Hypertension - Social History Occupation: Employed Full-time Lives: With Family Alcohol Use: Occasionally Substance Use Type: None Smoking Status (MU): Never Smoked Tobacco Review of Systems All Other Systems Reviewed And Are Negative: Yes Constitutional: Positive: Negative Skin: Positive: Negative Eyes: Positive: Negative ENT: Positive: Ear Ache - left ear pain, Nasal Discharge - clear, Other - decrease hearing from left ear Respiratory: Positive: Negative Cardiovascular: Positive: Negative Gastrointestinal: Positive: Negative Genitourinary: Positive: Negative Motor: Positive: Negative Neurovascular: Positive: Negative Musculoskeletal: Positive: Negative Neurological: Positive: Negative Psychological: Positive: Negative Is Patient Immunocompromised?: No Physical Exam - Summary Physical Exam Summary: Vital signs: reviewed General: well developed, well nourished female sitting in the examining table w/ o any apparent distress Skin: [place], warm and dry, no evidence of atopic dermatitis, psoriasis, seborrhea. HEENT: -Head: atraumatic, non tender; no scalp dermatitis. -Eyes: sclera and conjunctiva clear, PERRLA, EOMI -Ears: no pre- or postauricular lymphadenopathy or erythema;LF ear canal impacted w/ cerumen unable to visualize TM, pinna tenderness on palpation, RT external ear canal clear and RT TM WNL. No perforation. -Nose/Face: erythematous and edematous nasal mucosa with clear rhinorrhea, no frontal or maxillary sinus tender to palpation. -Mouth/Throat: Mucous membrane moist, posterior pharynx clear, no erythema or exudates. Neck: supple, FROM, nontender, no lymphadenopathy, no meningismus. Chest: Clear to auscultation, normal breath sounds Abd: soft, Bowel sounds active, Nontender. Back: no spinal or CVAT Neuro: A&O x4, GCS 15, no focal neuro deficits, normal behavior for age. Triage Information Reviewed: Yes Vital Signs: Initial Vital Signs Temp 98.4 F 03/14/18 15:01 Pulse 68 03/14/18 15:01 Resp 16 03/14/18 15:01 BP 119/80 03/14/18 15:01 Pulse Ox 100 03/14/18 15:01 Ear Complaint Course/Dx - Course Course Of Treatment: 43 y/o female presents to the urgent care c/o left ear pain and decrease hearing w/ pressure since 03/11/2018. She feels like she is in a fog. Pt reports Pain is 5/10. She had mild sinus pain and sinus congestion about 1 week ago and seh saw her PCP about 3 days ago and Dx w/ viral sinusitis w/ advises symptomatic treatment. Pt denies fever, URI symptoms, ALEX, dizziness , tinnitus, SOB, chest pain, abdominal pain, N/v/D. ear discharge. Hx obtained. Pt w/ left external ear canal impacted w/ cerumen and left anterior cervical and preauricular lymphadenopathy on examination. Left ear irrigation ordered. Irrigation performed by Nurse. Pt tolerated well procedure w/o any adverse effect. Left external w/ erythema and yellowish purulent discharge, LF TM WNL. Pt will be Tx for Otitis externa. Pt Rx Cortisporin otic drops. Advised to continue w/ Ibuprofen PO for alleviate otalgia. Pt advised if not improvement of symptoms in 2-3 days to return to the clinic or f/u w/ her PCP for further treatment. Pt understood and agreed w/ plan of care. - Differential Dx/Diagnosis Differential Diagnosis/HQI/PQRI: Barotrauma, Cerumen Impaction, Otitis Externa, Otitis Media, Perforated TM, URI Provider Diagnosis: Left ear impacted cerumen, Left otitis externa Discharge - Sign-Out/Discharge Documenting (check all that apply): Patient Departure - d/c home All imaging exams completed and their final reports reviewed: No Studies - Discharge Plan Condition: Stable Disposition: HOME Prescriptions: Neomyc/Polym/HC 1% OTIC SUSP* [Cortisporin Otic Susp 1%*] 4 drop LEFT EAR TID # 1 btl Patient Education Materials: Otitis Externa (ED), Cerumen Impaction (ED) Referrals: Perfecto Patel MD [Primary Care Provider] - 3 Days Additional Instructions: 1-Please apply otic antibiotic on your left ear as directed. 2-Take ibuprofen PO q6-8hrs prn after meals for pain. 3-If symptoms do not improve or worsen please f/u with your PCP in 3 days or return to the urgent care for further evaluation and treatment. - Billing Disposition and Condition Condition: STABLE Disposition: Home - Attestation Statements Provider Attestation: I was available for consult. This patient was seen by the BRENDA. The patient was not presented to, seen by, or examined by me. -Michael
== END 2018-03-14 16:17 | disposition home or self-care (01) ==
LOC: UCEAST 14:13
DX: H61.22 Impacted cerumen, left ear (principal); H60.92 Unspecified otitis externa, left ear; Z88.2 Allergy status to sulfonamides
CPT/HCPCS: 99212; G0463

== ENCOUNTER 2019-02-04 07:59 | Emergency (ER) | payer OTHER ==
[2019-02-04 08:08] VITALS: BP 120/84
--- NOTE | 2019-02-04 08:50 | UC ---
Complaint Female HPI - HPI Summary HPI Summary: 3-4 DAYS OF DYSURIA, FREQUENCY AND URGENCY. STATES SHE GETS A UTI EVERY FEW MONTHS USUALLY AFTER HAVING SEX HOWEVER THIS TIME SYMPTOMS ARE NOT ASSOCIATED WITH SEX. LAST INTERCOURSE WAS ABOUT 2 WEEKS AGO. HAS BEEN FOLLOWED BY HER PCP OFFICE FOR HER RECURRENT UTI. SHE STATES SHE HAS "BEEN TESTED FOR EVERYTHING " BUT HAS NOT YET HAD UROLOGY EVALUATION. SHE DENIES FEVER, BACK PAIN, NAUSEA. - History Of Current Complaint Chief Complaint: UCGU Stated Complaint: BURNING URINATION Time Seen by Provider: 02/04/19 08:29 Hx Obtained From: Patient Hx Last Menstrual Period: 02/17/18 Onset/Duration: Gradual Onset, Lasting Days, Still Present Timing: Constant Severity Initially: Moderate Severity Currently: Moderate Pain Intensity: 4 Pain Scale Used: 0-10 Numeric Character: Burning Aggravating Factor(s): Urination Alleviating Factor(s): Nothing Associated Signs And Symptoms: Positive: Negative - Allergies/Home Medications Allergies/Adverse Reactions: Allergies Allergy/AdvReac Type Severity Reaction Status Date / Time sulfamethoxazole Allergy Vomiting Verified 02/04/19 08:08 [From Bactrim] trimethoprim [From Bactrim] Allergy Vomiting Verified 02/04/19 08:08 Home Medications: Home Medications Phenazopyridine TAB* [Pyridium 100 mg TAB*] 100 mg PO TID 02/04/19 [History Confirmed 02/04/19] PMH/Surg Hx/FS Hx/Imm Hx Endocrine History: Hypothyroidism - Surgical History Surgical History: Yes Surgery Procedure, Year, and Place: appendix; D & C 2001 - Family History Known Family History: Positive: Respiratory Disease, Other - hypothyrodism Negative: Cardiac Disease, Hypertension - Social History Alcohol Use: Rare Substance Use Type: None Smoking Status (MU): Never Smoked Tobacco Review of Systems All Other Systems Reviewed And Are Negative: Yes Constitutional: Positive: Negative Respiratory: Positive: Negative Cardiovascular: Positive: Negative Gastrointestinal: Positive: Negative Genitourinary: Positive: Dysuria, Frequency, Urgency Physical Exam Triage Information Reviewed: Yes Appearance: Well-Appearing, No Pain Distress, Well-Nourished Vital Signs: Initial Vital Signs Temp 98.4 F 02/04/19 08:02 Pulse 69 02/04/19 08:02 Resp 18 02/04/19 08:02 BP 120/84 02/04/19 08:02 Pulse Ox 100 02/04/19 08:02 Laboratory Tests 02/04/19 08:17 POC Urine Color Desire POC Urine Clarity Clear POC Urine pH 6.5 POC Ur Specif [place] 1.010 POC Urine Protein Negative POC Ur Glucose (UA) Negative POC Urine Ketones Negative POC Urine Blood Negative POC Urine Nitrite Positive A POC Urine Bilirubin Negative POC Urine Urobilinogen 0.2 POC U Leukocyte Esteras Negative Vital Signs Reviewed: Yes Eyes: Positive: Conjunctiva Clear ENT: Positive: Hearing grossly normal Neck: Positive: Supple Respiratory: Positive: No respiratory distress, No accessory muscle use Cardiovascular: Positive: Pulses Normal Abdomen Description: Positive: Soft, Other: - mild suprapubic tenderness. Negative: CVA Tenderness (R), CVA Tenderness (L), Distended, Guarding Musculoskeletal: Positive: No Edema Neurological: Positive: Alert Psychological: Positive: Age Appropriate Behavior Skin: Negative: Rashes Complaint Female Dx - Course Course Of Treatment: PATIENT WITH HISTORY OF RECURRENT UTI ABOUT 3 OR 4 TIMES PER YEAR. SHE STATES IT IS USUALLY ASSOCIATED WITH SEX HOWEVER THIS TIME IT WAS NOT. DISCUSSED FOLLOW-UP WITH UROLOGY TO EVALUATE FOR OTHER UNDERLYING CAUSES OF RECURRENT UTI. WE'LL TREAT WITH CIPRO TWICE DAILY FOR 5 DAYS. PUSH FLUIDS. - Differential Dx/Diagnosis Provider Diagnosis: UTI (urinary tract infection) Discharge ED - Sign-Out/Discharge Documenting (check all that apply): Patient Departure All imaging exams completed and their final reports reviewed: No Studies - Discharge Plan Condition: Stable Disposition: HOME Prescriptions: Ciprofloxacin TAB* [Cipro 500 MG TAB*] 500 mg PO BID #10 tab Patient Education Materials: Urinary Tract Infection in Women (ED) Referrals: [facility] [Provider Group] Perfecto Patel MD [Primary Care Provider] - If Needed Additional Instructions: YOUR URINE TEST IS SUGGESTIVE OF A URINARY TRACT INFECTION TODAY. TAKE THE ANTIBIOTICS FOR THE FULL 5 DAYS PRESCRIBED. STAY WELL HYDRATED. YOUR URINE HAS BEEN SENT FOR CULTURE AND WE WILL CALL YOU IF YOUR MEDICATION NEEDS TO BE CHANGED. CONSIDER FOLLOW-UP WITH UROLOGY FOR EVALUATION FOR ANY UNDERLYING CAUSE OF YOUR RECURRENT UTI. - Billing Disposition and Condition Condition: STABLE Disposition: Home
--- NOTE | 2019-02-05 16:04 | UC ---
- Progress Note Progress Note: hx of recurrent UTI's and was treated with cipro 2 days ago. Please let her know that the culture was negative for growth. She was advised follow up with Dr. Patel, and advise to follow up for work up of her symptoms. She can stop use of cipro. Course/Dx - Diagnoses Provider Diagnoses: UTI (urinary tract infection) Discharge ED - Sign-Out/Discharge Documenting (check all that apply): Post-Discharge Follow Up All imaging exams completed and their final reports reviewed: No Studies - Discharge Plan Condition: Stable Disposition: HOME Prescriptions: Ciprofloxacin TAB* [Cipro 500 MG TAB*] 500 mg PO BID #10 tab Patient Education Materials: Urinary Tract Infection in Women (ED) Referrals: [facility] [Provider Group] Perfecto Patel MD [Primary Care Provider] - If Needed Additional Instructions: YOUR URINE TEST IS SUGGESTIVE OF A URINARY TRACT INFECTION TODAY. TAKE THE ANTIBIOTICS FOR THE FULL 5 DAYS PRESCRIBED. STAY WELL HYDRATED. YOUR URINE HAS BEEN SENT FOR CULTURE AND WE WILL CALL YOU IF YOUR MEDICATION NEEDS TO BE CHANGED. CONSIDER FOLLOW-UP WITH UROLOGY FOR EVALUATION FOR ANY UNDERLYING CAUSE OF YOUR RECURRENT UTI. - Billing Disposition and Condition Condition: STABLE Disposition: Home
== END 2019-02-04 08:50 | disposition home or self-care (01) ==
LOC: UCEAST 07:59
DX: N39.0 Urinary tract infection, site not specified (principal); Z88.2 Allergy status to sulfonamides; Z88.8 Allergy status to other drugs, medicaments and biological substances
CPT/HCPCS: 81003; 87086; 99212; G0463

== ENCOUNTER 2019-07-20 17:05 | Emergency (ER) | payer OTHER ==
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
[2019-07-20 19:05] VITALS: BP 128/81
--- NOTE | 2019-07-20 19:15 | UC ---
UC General HPI - HPI Summary HPI Summary: 44 yo female c/o dysuria, frequency, urgency x approx 6 days reports hx of similar findings with hx uti's, several times a year. reports that she might be referred to urologist. has had u/s in the past without issues. no hematuria has taken otc azo, which helps some but not completely. has been hydrating no back pain no gi upset menses normal, taking bcp (denies cp / palpitations / recent travel. nonsmoker) no vag d/c or perineum - History of Current Complaint Chief Complaint: UCGU Stated Complaint: UTI Hx Obtained From: Patient Hx Last Menstrual Period: 06/19/19 Pain Intensity: 6 - Allergy/Home Medications Allergies/Adverse Reactions: Allergies Allergy/AdvReac Type Severity Reaction Status Date / Time sulfamethoxazole Allergy Vomiting Verified 07/20/19 19:06 [From Bactrim] trimethoprim [From Bactrim] Allergy Vomiting Verified 07/20/19 19:06 Home Medications: Home Medications Levothyroxine TAB* [Synthroid 75 MCG TAB*] 75 mcg PO 0800 10/22/12 [History Confirmed 07/20/19] Multivitamin [Multivitamins] 1 cap PO DAILY 10/22/12 [History Confirmed 07/20/19 ] Norgestimate-Ethinyl Estradiol [Ortho Tri-Cyclen Lo Tablet] 1 each PO DAILY 11/16 [History Confirmed 07/20/19] L.acidoph,Paracasei, B.lactis [Probiotic] 2 cap PO DAILY 08/12/17 [History Confirmed 07/20/19] Phenazopyridine TAB* [Pyridium 100 mg TAB*] 100 mg PO TID 02/04/19 [History Confirmed 07/20/19] Ciprofloxacin TAB* [Cipro 500 MG TAB*] 500 mg PO BID #13 tab 07/20/19 [Rx] Phenazopyridine 200 mg (NF) [Pyridium 200 MG tab *] 200 mg PO TID PRN #12 tab [Rx] PMH/Surg Hx/FS Hx/Imm Hx Previously Healthy: Yes - see hpi - Surgical History Surgical History: Yes Surgery Procedure, Year, and Place: appendix; D & C 2001 - Family History Known Family History: Positive: Respiratory Disease, Other - hypothyrodism Negative: Cardiac Disease, Hypertension - Social History Alcohol Use: Rare Substance Use Type: None Smoking Status (MU): Never Smoked Tobacco Review of Systems All Other Systems Reviewed And Are Negative: Yes Constitutional: Positive: Negative Skin: Positive: Negative Eyes: Positive: Negative ENT: Positive: Negative Respiratory: Positive: Negative Cardiovascular: Positive: Negative Gastrointestinal: Positive: Negative Genitourinary: Positive: Other - see hpi Motor: Positive: Negative Neurovascular: Positive: Negative Musculoskeletal: Positive: Negative Neurological/Mental Status: Positive: Negative Psychological: Positive: Negative Is Patient Immunocompromised?: No Physical Exam Triage Information Reviewed: Yes Appearance: Well-Appearing, Well-Nourished Vital Signs: Initial Vital Signs Temp 99.1 F 07/20/19 19:02 Pulse 79 07/20/19 19:02 Resp 14 07/20/19 19:02 BP 128/81 07/20/19 19:02 Pulse Ox 100 07/20/19 19:02 Vital Signs Reviewed: Yes Eye Exam: Normal ENT Exam: Normal Neck exam: Normal Respiratory Exam: Normal Cardiovascular Exam: Normal - HR normal, nondiaphoretic Abdominal Exam: Normal, Other - no cvat subjective discomfort suprapubic region Abdomen Description: Positive: Soft Musculoskeletal Exam: Normal Musculoskeletal: Positive: Strength Intact - gait steady Neurological Exam: Normal - grossly nonfocal Psychological Exam: Normal - nad Skin Exam: Normal - no visible or reported rash nondiaphoretic Course/Dx - Course Course Of Treatment: Reviewed most recent urine cultures in [facility]. D/w pt urine dip. Will send cx. Will start po abx (cipro) pending cx results and clinical response Encourage f/u with plant operations manager as scheduled on Saturday, melia if cx no growth. Questions as posed answered to the best of my ability. Dx dysuiria, clinically suspicious uti. D/w pt. - Diagnoses Provider Diagnosis: Dysuria Discharge ED - Sign-Out/Discharge Documenting (check all that apply): Patient Departure All imaging exams completed and their final reports reviewed: No Studies - Discharge Plan Condition: Stable Disposition: HOME Prescriptions: Ciprofloxacin TAB* [Cipro 500 MG TAB*] 500 mg PO BID #13 tab Phenazopyridine 200 mg (NF) [Pyridium 200 MG tab *] 200 mg PO TID PRN #12 tab PRN Reason: Pain - Moderate Patient Education Materials: Urinary Tract Infection in Women (ED) Referrals: Perfecto Patel MD [Primary Care Provider] - Additional Instructions: Urine dip was ok, but given your history of frequent recurrent UTI's, will start antibiotic, pending urine culture and clinical response. You may call here in 3 days to check to see if urine culture result is available. You will be notified if there is a problem requiring antibiotic modifications. Hydrate. Do not take ciprofloxacin within 2 hours of your acid teagan. Please follow up with your plant operations manager as scheduled on Saturday. - Billing Disposition and Condition Condition: STABLE Disposition: Home
[2019-07-20] MEDS ORDERED: Phenazopyridine TAB* 100 MG PO ONE (19:49)
[2019-07-20] MEDS: Ciprofloxacin TAB* 500 MG PO ONE (19:56)
== END 2019-07-20 20:00 | disposition home or self-care (01) ==
LOC: UCEAST 17:05
DX: R30.0 Dysuria (principal); Z87.440 Personal history of urinary (tract) infections; Z88.2 Allergy status to sulfonamides
CPT/HCPCS: 81003; 87086; 99212; A9270-GY; G0463